=== PATIENT | male | born 1955 | race Caucasian/White ===

== ENCOUNTER → 2018-08-07 | Day surgery (SDC) | payer OTHER ==
[2018-08-04 15:30] LABS: BASOPHILS % 0.4 % (0.0-1.0); EOSINOPHILS # (AUTO) 0.2 (0.0-0.4); EOSINOPHILS % 2.5 % (0.0-6.0); HEMATOCRIT 48.7 % (38.2-49.6); HEMOGLOBIN 16.5 g/dL (14.0-18.0); LYMPHOCYTES # (AUTO) 3.2 (1.0-3.2); LYMPHOCYTES % 34.2 % (18.0-39.1); MEAN CORPUSCULAR HEMOGLOBIN 32.4 pg (28-32); MEAN CORPUSCULAR HGB CONC 33.9 g/dL (31-35); MEAN CORPUSCULAR VOLUME 95.7 fL (81-99); MONOCYTES # (AUTO) 0.9 (0.2-0.8); MONOCYTES % 9.9 % (4.4-11.3); NEUTROPHILS # (AUTO) 4.9 (2.1-6.9); NEUTROPHILS % 52.7 % (38.7-80.0); PLATELET COUNT 172 x10e3/uL (140-360); RED BLOOD COUNT 5.09 x10e6/uL (4.3-5.7)
[2018-08-04 15:34] LABS: INR 0.9; PROTHROMBIN TIME 12.6 seconds (11.9-14.5)
[2018-08-04 15:35] LABS: PARTIAL THROMBOPLASTIN TIME 31.4 seconds (23.8-35.5)
--- NOTE | 2018-08-04 15:55 | Diagnostic Imaging Report ---
EXAMINATION: CHEST 2 VIEWS INDICATION: Pre-op. COMPARISON: None FINDINGS: The left costophrenic angle is partially excluded from the [id number] on the frontal radiograph. TUBES and LINES: None. LUNGS: Lungs are well inflated. Patchy opacity at the left lung base. No evidence of pulmonary edema. PLEURA: No pleural effusion or pneumothorax. HEART AND MEDIASTINUM: The cardiomediastinal silhouette is mildly enlarged. BONES AND SOFT TISSUES: No acute osseous abnormality. Partially seen cervical spine fixation hardware. UPPER ABDOMEN: No free air under the diaphragm. IMPRESSION: Patchy opacity at the left lung base likely represents atelectasis. Patchy pneumonia can have a similar appearance. Follow-up chest radiograph is suggested in 6-8 weeks to assess for resolution. Mild cardiomegaly without evidence of pulmonary edema. Signed by: Dr. Oriana Talbert MD on 08/04/2018 3:51 PM
[2018-08-04 18:43] LABS: BLOOD UREA NITROGEN 11 mg/dL (7-26); BUN/CREATININE RATIO 10 (6-25); CALCIUM 10.5 mg/dL (8.4-10.2); CARBON DIOXIDE 26 mmol/L (22-29); CHLORIDE 102 mmol/L (98-107); CREATININE, SERUM 1.13 mg/dL (0.72-1.25); EST GLOMERULAR FILTRATION RATE > 60 ML/MIN (60-); GLUCOSE 71 mg/dL (74-118); SODIUM 143 mmol/L (136-145)
[~2018-08-07] VITALS: Ht 172.7 cm; Wt 103.0 kg
[2018-08-07] VITALS (13 sets, daily range): BP systolic 123–152; BP diastolic 66–91
[~2018-08-07] MED LIST: ASPIR 8181 MG PO; CRESTOR10 MG PO; FENTANYL CITRATE/PF 100MCG/2 ML INJ ONE; HEPARIN SOD/SOD CHLORIDE 2,000 ML ONE; IOPAMIDOL 370 MG/ML 200 ML INFUS..BTL INJ ONE; LIDOCAINE HCL 2% LOCAL 20 ML VIAL ONE; LIPITOR10 MG PO; METOPROLOL SUCC25 MG PO; MIDAZOLAM HCL 2 MG/2 ML VIAL ONE; NITROGLYCERIN0.4 MG SL; PRILOSEC OTC20 MG PO; SODIUM CHLORIDE 0.9% 1000ML 1,000 ML ONE; ZYRTEC10 M3 PO
--- NOTE | 2018-08-07 03:24 | History and Physical ---
Mr. Herrera is a complex 63-year-old male with multiple medical problems, is admitted at this time for re-evaluation of coronary artery disease. HISTORY OF PRESENT ILLNESS: The patient had a CT scan of the chest performed in July 2018 that actually showed coronary calcifications and possibly pneumonia. PAST MEDICAL HISTORY: Significant for recurring chest pain. He had previous cardiac catheterization in 2012 that was unremarkable. 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 PAST SURGICAL HISTORY: Hernia repair, leg fracture, cervical spine surgery by Dr. Fisher, cholecystectomy, and right carpal tunnel surgery. CURRENT MEDICATIONS: Include pravastatin 20 mg daily and Toprol-XL 25 mg daily. FAMILY HISTORY: Mother had palpitations. His paternal grandfather had coronary artery disease. PERSONAL AND SOCIAL HISTORY: The patient continues to smoke. ALLERGIES: HE HAS NO KNOWN ALLERGIES. PHYSICAL EXAMINATION: GENERAL: At this time shows a pleasant man, who is 5 feet 8 inches tall, weighing 226 pounds. VITAL SIGNS: Blood pressure 134/76, pulse 90 and regular. HEAD, EYES, EARS, NOSE, AND THROAT: Unremarkable. NECK: No jugular venous distention or bruits. THORAX: Heart sounds S1 and S2 are equal. No murmurs, gallops, or rubs. LUNGS: Clear. ABDOMEN: Protuberant. Normal bowel sounds. Nontender. EXTREMITIES: No cyanosis, clubbing, or edema. IMAGING: EKG shows sinus rhythm with sinus tachycardia. Cardiolite was performed on July 24, 2018 that suggested moderate defect in the inferoapical wall, possibly scar less likely ischemia and EF 45%. Plan is to perform left heart catheterization with further management based on the results of the study. ASSESSMENT: 1. Coronary artery disease with calcifications. 2. Hypertension. 3. Hyperlipidemia. 4. Hiatal hernia. 5. Possible Díaz's esophagus. MD TODD Mckeon/VERONICA /[id number] cc: MD Trey Dominguez
--- OUTSIDE RECORDS SUMMARY | 2018-08-07 08:13 | XMS REPORT | Summary of Care ---
Author Author [facility] Outpatient Imaging [facility] Address Unknown Phone Unavailable Encounter HQ Encntr_alias(FIN) [id number] Date(s): 07/14/18 - 07/14/18 [facility] Outpatient [facility] [address] [facility], [address] [place] [phone] Discharge Disposition: Home or Self Care Attending Physician: Trey Nava MD Referring Physician: Trey Nava MD Vital Signs No data available for this section Problem List No data available for this section Allergies, Adverse Reactions, Alerts No data available for this section Medications No data available for this section Results No data available for this section Immunizations No data available for this section Procedures No data available for this section Social History No data available for this section Assessment and Plan No data available for this section
--- OUTSIDE RECORDS SUMMARY | 2018-08-07 08:13 | XMS REPORT | Summary of Care ---
Author Author [facility] Outpatient Imaging [facility]patient [facility] Address Unknown Phone Unavailable Encounter HQ Encntr_alias(FIN) [id number] Date(s): 06/16/18 - 06/16/18 [facility] Outpatient Imaging [facility] [address] [facility], [address] [place] [phone] Discharge Disposition: Home or Self Care Attending Physician: Steven Torres MD Referring Physician: Steven Torres MD Vital Signs No data available for [...]
--- OUTSIDE RECORDS SUMMARY | 2018-08-07 08:13 | XMS REPORT | Continuity of Care Document ---
Author Author Lazara vinicius Organization Interface Address Unknown Phone Unavailable Problems Problem Status Onset Date Classification Date Reported Comments Source J20.9 - "ACUTE BRONCHITIS, UNSPECIFIED" Active 04/01/2015 [facility] 683 - ACUTE LYMPHADEN Active 05/04/2013 [facility] [place] Medications Medication Details Route Status Patient Instructions Ordering Provider Order Date Source Allergies, Adverse Reactions, Alerts Substance Category Reaction Severity Reaction type Status Date Reported Comments Source Immunizations Immunization Date Given Site Status Last Updated Comments Source Results Order Name Results Value Reference Range Date Interpretation Comments Source CT Low Dose Lung Screening CT Low Dose Lung Screening Study: CT Low Dose Lung Screening Age: 63 years y/o Male Clinical Indication: - Z12.2 Encounter for screening for malignant neoplasm of respiratory organs; Comparison: None. HISTORY: Asymptomatic patient meeting NCCN high-risk criteria for lung screening. Patient is currently a smoker. There is a 40 pack-year history of smoking. Exam: Baseline TECHNIQUE: Noncontrast, volumetric low-dose CT Chest. jXh=686 mA=80; CT Dlvol=2.72 mGy FINDINGS: LUNG NODULES: Detail below:. 1. Right lung, 3 mm solid-- new; slice 140 Other Lung Disease: Small branching opacities in the right lower lobe seen on images 197-210 of series 2. Small linear opacities seen the lingula and middle lobe are most consistent with subsegmental atelectasis/scarring. Mild bilateral central bronchiectasis noted. No pleural effusions or pneumothorax. Calcified granuloma seen the right lower lobe on image 260 of series 2. Aorta: No aneurysm. Mild atherosclerotic changes in the aortic arch. Heart / Pericardium: Normal size. No effusions. Within normal limits. Coronary Ca++ / Atherosclerosis: Mild atherosclerosis. Adenopathy: No enlarged intrathoracic lymph nodes. Evaluation of hilar spaces is suboptimal due to lack of intravenous contrast. Partially calcified mediastinal and right hilar lymph nodes are most consistent with sequela of prior granulomatous disease. Base of Neck: Partially imaged fixation hardware seen in the cervical spine. Upper Abdomen: No significant findings. OTHER INCIDENTALS: No significant findings. LUNG-RADS CATEGORY AND IMPRESSION: * Lung-Rads Category: Category 2: Negative, benign findings with no evidence of malignancy. Suggest next LDCT in 12 months if age still less than 77 years. Category C -- History of lung cancer: None. Category S -- Other findings requiring urgent evaluation: None. * Small branching opacities seen in the right lower lobe may represent infectious/inflammatory etiology or sequela prior infection. * CT findings of prior granulomatous disease. * Mild bilateral central bronchiectasis. Thank you for choosing the [facility] Lung Screening Program. 07/14/2018 - - Read by: Makenna Lainez MD Dictated Date/time: 07/14/18 12:52 Electronically Signed by: Makenna Lainez MD 07/14/18 13:30 FINAL REPORT [facility] Chest 2 views DX Chest 2 views DX EXAM: XR CHEST 2 VIEWS DATE: 06/16/2018 11:42 CDT INDICATION: - J20.8 Acute bronchitis due to other specified organisms. Cough. Sinus infection. COMPARISON: 04/01/2015 TECHNIQUE: PA and lateral chest radiographs FINDINGS: No lung parenchymal or pleural abnormalities are seen. [place] and pulmonary vasculature are normal. Cardiomediastinal silhouette is normal in appearance. No acute bony abnormality is identified. Diffuse idiopathic several hyperostosis of the mid to lower thoracic spine is present with mild dextroscoliosis. Surgical anterior fusion hardware is seen in the lower cervical spine. IMPRESSION: No acute cardiopulmonary abnormality. No radiographic evidence of pneumonia. 06/16/2018 - - Read by: George Valle MD Dictated Date/time: 06/16/18 13:38 Electronically Signed by: George Valle MD 06/16/18 13:40 FINAL REPORT [facility] Spine cervical wo contrast CT Spine cervical wo contrast CT EXAMINATION: Cervical spine CT Without contrast CLINICAL INDICATION: M43.12 Spondylolisthesis, cervical region Comparison: 02/05/2016 MRI of the cervical spine TECHNIQUE: Multiple axial images of the cervical spine were obtained. 3-D, Sagittal and coronal reconstructions are provided. Total exam dose length product 760 mGy-cm. DISCUSSION: There is no evidence of fracture or dislocation. Minimal grade 1 anterior listhesis is again noted at C3-C4 and C7-T1. ACDF hardware is again noted from C5 through C7 without evidence of failure. Based on anterior epidural density there are up to 3 mm disc osteophyte complexes at C4-C5 greater than C3- C4. Uncovertebral hypertrophy results in residual moderate to severe left and right C6-C7 bony neural foraminal narrowing bilaterally with additional mild multilevel degenerative neural foraminal narrowing predominantly at C3-C4 and C5-C6. The prevertebral soft tissues are normal. Spinal cord, disc related, ligamentous or vascular injuries cannot be excluded on the basis of this examination. IMPRESSION: 1. Grossly stable postoperative and degenerative changes as detailed above, without evidence of acute bony abnormality. 03/15/2016 - - Read by: Juliano Beltre MD Dictated Date/time: 03/15/16 17:39 Electronically Signed by: Juliano Beltre MD 03/15/16 17:45 FINAL REPORT [facility] Spine cervical wo contrast MRI Spine cervical wo contrast MRI MRI CERVICAL SPINE WITHOUT CONTRAST TECHNIQUE: Multiplanar multisequence imaging of the cervical spine was performed without administration of intravenous gadolinium. COMPARISON: 11/10/2007 MRI exam. FINDINGS: Multilevel disc desiccation is seen. C1-C2 level slightly more prominent retroodontoid soft tissue pannus measuring 5.5 mm with mild central canal stenosis, no mass effect on the cervical cord. C2-C3: Unremarkable. C3-C4: 1 mm grade 1 anterolisthesis is present with moderate left facet osteoarthritis since 2007, with moderate left foraminal stenosis. No central canal stenosis. C4-C5: 1 mm disc bulge is seen without central canal stenosis, contacting the anterior cord margin. Posterior annular fissure is present. No foraminal stenosis. C5-C6: Post ACDF changes without central canal stenosis. No foraminal stenosis, significant improvement since 2007. C6-C7: Post ACDF without central canal stenosis. Stable moderate to severe left foraminal stenosis due to foraminal osteophytes. C7-T1: Stable moderate right facet osteoarthritis and development of mild left facet osteoarthritis with 1.5 mm grade 1 anterolisthesis. No central canal or foraminal stenosis. The cervical cord signal is unremarkable without MRI evidence of myelomalacia. The midline suboccipital subcutaneous lipoma is stable measuring 2.1 cm. IMPRESSION: 1. Multilevel disc degenerative disease and spondylosis. 2. C5-C6 and C6-C7 postsurgical changes as above. Persistent C6-C7 moderate to severe left foraminal stenosis. 3. C3-C4 grade 1 anterolisthesis since 2008 with moderate left foraminal stenosis. No central canal stenosis. 4. C7-T1 grade 1 degenerative anterolisthesis. 5. Normal cervical cord signal. 02/05/2016 - - Read by: Elliot Valerio MD Dictated Date/time: 02/05/16 15:09 Electronically Signed by: Elliot Valerio MD 02/05/16 15:16 FINAL REPORT [facility] Chest 2 views DX Chest 2 views DX EXAM: XR CHEST TWO VIEWS DATE: 04/01/2015 COMPARISON EXAMS: 05/04/2013 CLINICAL INDICATION: Acute bronchitis unspecified. TECHNIQUE: PA and Lateral views DISCUSSION: PA and lateral chest x-rays reveal no lung parenchymal or pleural abnormalities. The cardiomediastinal silhouette, hilar, and pulmonary vascular structures as well as the regional chest wall structures are normal in appearance. A large left apical epicardial fat pad is again demonstrated. Tracheal and mainstem bronchial shadows are normal in appearance. Stable appearing cervical spine fusion hardware is seen in the inferior cervical spine. There is mild dextroscoliosis of the thoracic spine with mild spondylosis. IMPRESSION: No acute cardiopulmonary abnormalities are seen. No radiographic evidence of pneumonia or of bronchitis. No significant change from 05/04/2013. 04/01/2015 - - Read by: George Valle MD Dictated Date/time: 04/01/15 13:24 Electronically Signed by: George Valle MD 04/01/15 13:26 FINAL REPORT [facility] Chest 2 views Chest 2 views Two view chest. INDICATION: Acute lymphadenitis. COMPARISON: August 05, 2006. FINDINGS: Midline trachea. Cardiac silhouette and aortic contour within normal limits. Symmetric keara. No pneumothorax, lobar consolidation, or pleural effusion. Postoperative changes of the cervical spine. IMPRESSION: No acute process. 05/04/2013 - - Read by: Mert Valentin Dictated Date/time: 05/04/13 14:45 Electronically Signed by: Mert Valentin MD 05/04/13 14:47 FINAL REPORT [facility] Vital Signs Vital Sign Value Date Comments Source Encounters Location Location Details Encounter Type Encounter Number Reason For Visit Attending Provider ADM Date DC Date Status Source OD [id number] - ACUTE LYMPHADEN TREY NAVA 05/04/2013 05/04/2013 Active [facility] [place] [facility] [id number] Trey Nava 04/01/2015 04/02/2015 [facility] Out[facility] [place] [facility] [id number] Trey Nava 02/05/2016 02/06/2016 [facility] [place] [facility] [place] [facility] [id number] Jon Fisher 03/15/2016 03/16/2016 [facility] [place] [facility] [id number] Steven Torres 06/16/2018 06/17/2018 [facility] Out[facility] [id number] Trey Nava 07/14/2018 07/15/2018 [facility] Procedures Procedure Code Date Perfomer Comments Source
--- OUTSIDE RECORDS SUMMARY | 2018-08-07 08:14 | XMS REPORT | Summary of Care ---
Author Author [facility] Outpatient Imaging - [place] Organization [facility] Outpatient [facility] - [place] Address Unknown Phone Unavailable Encounter HQ Encntr_alias(FIN) [id number] Date(s): 02/05/16 - 02/05/16 [facility] Outpatient Imaging - [place] [address] [place] [phone] Discharge Disposition: Home or Self Care Attending Physician: Trey Nava MD Vital Signs No [...]
--- OUTSIDE RECORDS SUMMARY | 2018-08-07 08:14 | XMS REPORT | Summary of Care ---
Author Author [facility] Outpatient Imaging - [place] Organization [facility] Outpatient Imaging - [place] Address Unknown Phone Unavailable Encounter HQ Encntr_alias(FIN) [id number] Date(s): 03/15/16 - 03/15/16 [facility] Outpatient Imaging - [place] [address] [place] [phone] Discharge Disposition: Home or Self Care Attending Physician: Jon Fisher MD Vital Signs No data available for [...]
--- OUTSIDE RECORDS SUMMARY | 2018-08-07 08:14 | XMS REPORT | Summary of Care ---
Author Author [facility] Outpatient Imaging [facility] Outpatient [facility] Address Unknown Phone Unavailable Encounter HQ Axelntr_damaso(FIN) [id number] Date(s): 04/01/15 - 04/01/15 [facility] Outpatient Imaging [facility] [address] [facility], [address] [place], [place] [address] [phone] Discharge Disposition: Home Attending Physician: Trey Nava MD Vital Signs [...]
--- OUTSIDE RECORDS SUMMARY | 2018-08-07 08:14 | XMS REPORT ---
Author Author [facility] Address Unknown Phone Unavailable Care Team Providers Care Design Technology Teacher Name Role Phone Bobby VERDUGO Unavailable Unavailable Problems This patient has no known problems. Allergies, Adverse Reactions, Alerts This patient has no known allergies or adverse reactions. Medications This patient has no known medications. Results Test Description Test Time Test Comments Text Results Atomic Results Result Comments CHEST 2 VIEWS 2018-08-04 15:48:00 [facility] [address] [place] [address] Patient Name: PORTER REDD MR #: [id number] : 1955 Age/Sex: 63/M Req #: [id number] [facility] Physician: Ordered by: SHANNAN VERDUGO MD Report #: [id number] Location: TRANSITION RN Room/Bed: Procedure: [id number] DX/CHEST 2 VIEWS Exam Date: Exam Time: REPORT STATUS: Signed EXAMINATION: CHEST 2 VIEWS INDICATION: Pre-op. COMPARISON: None FINDINGS: The left costophrenic angle is partially excluded from the [id number] on the frontal radiograph. TUBES and LINES: None. LUNGS: Lungs are well inflated. Patchy opacity at the left lung base. No evidence of pulmonary edema. PLEURA: No pleural effusion or pneumothorax. HEART AND MEDIASTINUM: The cardiomediastinal silhouette is mildly enlarged. BONES AND SOFT TISSUES: No acute osseous abnormality. Partially seen cervical spine fixation hardware. UPPER ABDOMEN: No free air under the diaphragm. IMPRESSION: Patchy opacity at the left lung base likely represents atelectasis. Patchy pneumonia can have a similar appearance. Follow-up chest radiograph is suggested in 6-8 weeks to assess for resolution. Mild cardiomegaly without evidence of pulmonary edema. Signed by: Dr. Bro Rapp MD on 08/04/2018 3:51 PM Dictated By: BRO RAPP MD [id number] Transcribed By: COCO on 08/04/18 4930 COPY TO: SHANNAN VERDUGO MD
--- NOTE | 2018-08-07 17:00 | NUR ---
Bed rest complete. Reviewed discharge instructions with patient and family. Reviewed activity restrictions, dressing care, follow up appointment, discharge home medication reconciliation, and diet. Reviewed signs and symptoms to look for: when to call the doctor and when to call 911. Patient and family verbalized understanding and had no questions at this time.
--- NOTE | 2018-08-07 17:10 | NUR ---
Patient ambulated to restroom and back to room. Patient tolerated well. No distress noted. Dressing to right groin is clean, dry, and intact and soft upon palpation. IV to right hand removed and dressing placed per unit policy. 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 No distress noted at time of discharge.
--- NOTE | 2018-08-07 20:44 | Operative Report ---
DATE OF PROCEDURE: 08/07/2018 SURGEON: Devan Fairbanks MD PROCEDURE: Left heart catheterization. INDICATIONS: Chest pain and abnormal Cardiolite. PROCEDURE IN DETAIL: The patient is premedicated with 1 mg Versed and the right groin was prepped with scrub and 2% xylocaine and 4-Sudanese sheath placed in the right common femoral artery. Left heart catheterization performed with 4-Sudanese pigtail and 4-Sudanese right and left Catarina catheters. Inspection of films demonstrates normal coronary arteries without any evidence of any plaquing. A right-dominant system. The left ventricular function appears to be normal with estimated ejection fraction of 50%. The catheters were removed, pressure held and he was sent to his room stable condition. There was no blood loss. No complication. FINAL IMPRESSION: 1. Normal coronary arteries. 2. Normal left ventricular function. EF about 50%. MD TODD Mckeon/VERONICA /[id number]
--- NOTE | 2018-08-08 12:00 | Discharge Summary ---
HOSPITAL COURSE: Mr. York is a pleasant 63-year-old man with hypertension, hyperlipidemia, and recurring chest pain. He is admitted on the morning of the for re-evaluation of coronary artery disease. His cardiac catheterization showed normal coronaries and normal left ventricular function. The patient tolerated the procedure well and there was no blood loss. No complication. It is felt his symptoms are probably noncardiac in origin. He is instructed to follow up with his doctors for further evaluation of noncardiac pain. He will resume home medications. DISCHARGE DIAGNOSES: 1. Normal coronary arteries. 2. Normal left ventricular function. 3. Hypertension. 4. Hyperlipidemia. 5. Hyperglycemia. 6. Tobacco usage. MD TODD Mckeon/VERONICA /[id number]
== END | disposition home or self-care (01) ==
LOC: CATH LAB 08:10
PROVIDERS: ATTEND Internal Medicine Cardiovascular Disease
DX: R07.9 Chest pain, unspecified (principal); R94.39 Abnormal result of other cardiovascular function study; E78.5 Hyperlipidemia, unspecified; R00.2 Palpitations; I47.1 Supraventricular tachycardia; Q23.3 Congenital mitral insufficiency; R73.9 Hyperglycemia, unspecified; K44.9 Diaphragmatic hernia without obstruction or gangrene; Z01.810 Encounter for preprocedural cardiovascular examination; Z01.812 Encounter for preprocedural laboratory examination; Z01.818 Encounter for other preprocedural examination; Z79.82 Long term (current) use of aspirin; Z82.49 Family history of ischemic heart disease and other diseases of the circulatory system
CPT/HCPCS: 36415; 71046; 80048; 85025; 85610; 85730; 86850; 86900; 93005; 93458; C1766; J2001; J2250; J7030; Q9967